=== PATIENT | female | born 1985 | race Two or more races ===

== ENCOUNTER 2018-09-02 01:35 | Emergency (ER) | payer OTHER ==
[~2018-09-02] VITALS: Ht 157.5 cm; Wt 86.2 kg
[2018-09-02 02:55] VITALS: BP 113/73
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
== END 2018-09-02 03:15 | disposition home or self-care (01) ==
LOC: ER 01:35
DX: S80.10XA Contusion of unspecified lower leg, initial encounter (principal); R51 Headache; M54.2 Cervicalgia; R55 Syncope and collapse; R07.89 Other chest pain; Z98.890 Other specified postprocedural states; Z90.710 Acquired absence of both cervix and uterus; Z90.89 Acquired absence of other organs; Z88.1 Allergy status to other antibiotic agents; V47.6XXA Car passenger injured in collision with fixed or stationary object in traffic accident, initial encounter; Y93.89 Activity, other specified; Y92.410 Unspecified street and highway as the place of occurrence of the external cause; Y99.8 Other external cause status
CPT/HCPCS: 70450; 71045; 72125; 99284; 99285